=== PATIENT | female | born 1995 | race Caucasian/White ===

== ENCOUNTER 2021-01-31 19:18 | Emergency (ER) | payer OTHER, SELFPAY ==
[2021-01-31 19:49] VITALS: BP 119/87; PULSE 96; RESP 17; TEMP 37.1; O2SAT 98; BMI 40.5
--- NOTE | 2021-01-31 19:57 | HMH.EDUTC ---
[facility] [place] Disposition Clinical Impression: Upper respiratory infection, viral, COVID-19 virus test result unknown Disposition: Home, Self-Care Condition on Discharge: Good Instructions: Preventing the Spread of Coronavirus Discharge Instructions, DI for COVID-19 (Suspected or Confirmed ), DI for Viral Upper Respiratory Infection -- Adult Additional Instructions: No sign of a bacterial infection. Likely viral. Viruses can take 7-14 days to run their course. Nasal saline and bulb syringe or nose Rashida to remove nasal drainage to help with nasal congestion. Hard to eat, drink, sleep with nasal congestion so important to keep this cleaned out. Monitor temp. Tylenol or Motrin as needed for pain or fever Encourage fluids, water, Gatorade, Powerade, Pedialyte if /toddler/child Warm salt water gargles Warm fluids Sore throat lozenges Sleep elevated Humidifier/vaporizer Your covid swab was sent to lab call in am for results-self isolate until test results are known to be neg Follow-up immediately for new or worsening symptoms or no noticeable improvement over the next 48-72 hours. Referrals: PCP,No [Primary Care Provider] - Time of Disposition: 20:01 Medical Decision Making - Hansel Inquiry Pt receiving controlled substance: No Vital Signs: 01/31/21 19:49 Temperature 98.8 F Temperature Source Oral Pulse Rate [Right] 96 H Respiratory Rate 17 Blood Pressure [Right Arm] 119/87 Blood Pressure Mean [Right Arm] 97 Blood Pressure Source [Right Arm] Automatic Cuff Blood Pressure Position [Right Arm] Sitting 02 Sat by Pulse Oximetry 98 Orders (Tests/Meds): ORDERS Category Date Time Status Covid-19 Nasal PCR ([facility]) Routine Lab 01/31/21 19:40 Received [facility] [place] HPI - General Chief complaint: Urgent Treatment Center Stated complaint: sore throat, Headache, vomiting Time Seen by Provider: 01/31/21 19:57 Mode of Arrival: Ambulatory Source of Information: Patient Limitations: No Limitations Description of Symptoms (Recalled from Triage Doc. by RN): pt is having a sore throat, body aches, SELLERS, cough, N/V and soa. pt is 18 weeks . HEENT Symptoms (Recalled from RN notes): Yes (sore throat and SELLERS) Resp Symptoms (Recalled from RN notes): Yes (cough and soa) Skin Symptoms (Recalled from RN notes): No MS Symptoms (Recalled from RN notes): No Functional Status (Recalled from RN notes): na - History of Present Illness Provider Complaint: 25 yr old female presents for a sore throat, body aches, SELLERS, watery eyes, cough, N/V and soa. pt is 18 weeks . - Related Data Allergies Allergy/AdvReac Type Severity Reaction Status Date / Time desvenlafaxine [From Pristiq] Allergy Verified 01/31/21 19:56 - Worker's Comp Is this a Worker's Comp case?: No [facility] History - Hepatitis A Screen Drug use history?: No High risk sexual behaviors?: No History of sexually transmitted infection?: No Currently employed?: No Childcare worker?: No Do you have indoor plumbing?: Yes Do you have electricity?: Yes Attestation statement:: This patient has been screened for Hepatitis A risk factors. I have reviewed the patient's past medical history: Yes ROS Obtained: Yes Systems reviewed as appropriate & no additional complaints - Constitutional Constitutional: Reports system reviewed and no additional complaints, except as docu, Reports body ache, Reports chills, Reports fever(s) - Eyes Eyes: Reports system reviewed and no additional complaints, except as docu, Denies dry eyes - ENT Ears, Nose, Mouth, and Throat: Reports system reviewed and no additional complaints, except as docu, Reports headache(s), Reports nasal congestion, Reports sore throat - Cardiovascular Cardiovascular: Reports system reviewed and no additional complaints, except as docu, Denies chest pain - Respiratory Respiratory: Reports system reviewed and no additional complaints, except as docu, Denies change in phlegm color, Reports cough - Gastr
[2021-01-31 20:01] LABS: UTC Influenza A Antigen Negative (Negative); UTC Strep Screen (Rapid) Negative (Negative)
[2021-01-31 20:02] LABS: UTC Influenza B Antigen Negative (Negative)
[2021-01-31 20:22] VITALS: BP 119/87; PULSE 96; RESP 17; TEMP 37.1
--- NOTE | 2021-02-01 15:22 | PC.NURSE ---
PT NOTIFIED OF POSITIVE COVID RESULT
== END 2021-01-31 20:22 | disposition home or self-care (01) ==
PROVIDERS: Emergency Provider Nurse Practitioner Family
DX: U07.1 COVID-19 (principal); Z3A.18 18 weeks gestation of pregnancy
CPT/HCPCS: 87804; 87880; 99202; G0463; U0003

== ENCOUNTER 2021-02-14 18:27 | Emergency (ER) | payer OTHER, SELFPAY ==
[2021-02-14 18:30] VITALS: BP 128/80; PULSE 96; RESP 18; TEMP 37; O2SAT 97; BMI 39.1
[2021-02-14 18:47] LABS: UTC Strep Screen (Rapid) Negative (Negative)
--- NOTE | 2021-02-14 19:03 | HMH.EDUTC ---
[facility] [place] Clinical Impression: Upper respiratory infection, viral Disposition: Home, Self-Care Condition on Discharge: Good Instructions: Preventing the Spread of Coronavirus Discharge Instructions Additional Instructions: follow up with health dept Referrals: PCP,No [Primary Care Provider] - Time of Disposition: 19:06 Medical Decision Making - Hansel Inquiry Pt receiving controlled substance: No Vital Signs: 02/14/21 18:30 Temperature 98.6 F Temperature Source Oral Pulse Rate [Right Brachial] 96 H Respiratory Rate 18 Blood Pressure [Right Arm] 128/80 Blood Pressure Mean [Right Arm] 96 Blood Pressure Source [Right Arm] Automatic Cuff Blood Pressure Position [Right Arm] Sitting 02 Sat by Pulse Oximetry 97 Oxygen Delivery Method Room Air - Lab Data Lab Results 02/14/21 18:39: Strep Scn Rapid Clinic Negative Orders (Tests/Meds): ORDERS Category Date Time Status Strep Screen Confirmation Stat Micro 02/14/21 18:39 Received [facility] [place] HPI - General Chief complaint: Urgent Treatment Center Stated complaint: sore throat, Time Seen by Provider: 02/14/21 19:03 Mode of Arrival: Ambulatory Source of Information: Patient Limitations: No Limitations Description of Symptoms (Recalled from Triage Doc. by RN): PATIENT C/O SORE THROAT. SHE STATES SHE TESTED POSITIVE FOR COVID 14 DAYS AGO AND HEALTH DEPARTMENT WANTS HER TESTED FOR STREP HEENT Symptoms (Recalled from RN notes): Yes Resp Symptoms (Recalled from RN notes): No Skin Symptoms (Recalled from RN notes): No MS Symptoms (Recalled from RN notes): No Functional Status (Recalled from RN notes): WNL - History of Present Illness Provider Complaint: 25 yr old female presents for sore throat. pt states this is her day 14 of covid and she was told by the health dept to be checked for strep so she can be released to return back to work. - Related Data Allergies Allergy/AdvReac Type Severity Reaction Status Date / Time desvenlafaxine [From Pristiq] Allergy Verified 01/31/21 19:56 - Worker's Comp Is this a Worker's Comp case?: No [facility] History - Hepatitis A Screen Drug use history?: No High risk sexual behaviors?: No History of sexually transmitted infection?: No Currently employed?: No Childcare worker?: No Do you have indoor plumbing?: Yes Do you have electricity?: Yes Attestation statement:: This patient has been screened for Hepatitis A risk factors. I have reviewed the patient's past medical history: Yes Medical History: Reports:: Diabetes Mellitus Type 2 Laterality Cases: Bilateral: Myringotomy (Ear Tubes) - Social History Alcohol Intake: never Occupational Status: other ROS Obtained: Yes Systems reviewed as appropriate & no additional complaints - Constitutional Constitutional: Reports system reviewed and no additional complaints, except as docu, Denies fever(s) - Eyes Eyes: Reports system reviewed and no additional complaints, except as docu, Denies blurry vision - ENT Ears, Nose, Mouth, and Throat: Reports system reviewed and no additional complaints, except as docu, Denies headache(s), Denies neck mass, Reports sore throat - Cardiovascular Cardiovascular: Reports system reviewed and no additional complaints, except as docu, Denies chest pain - Respiratory Respiratory: Reports system reviewed and no additional complaints, except as docu, Denies change in phlegm color - Gastrointestinal Gastrointestingal: Reports: system reviewed and no additional complaints, except as docu. Denies: pain with swallowing - Genitourinary Female Genitourinary: Reports system reviewed and no additional complaints, except as docu - Musculoskeletal Musculoskeletal: Reports system reviewed and no additional complaints, except as docu, Denies joint pain - Integumentary/Breasts Skin/Breast: Reports system reviewed and no additional complaints, except as docu, Denies rash - Neurologic Neurologic: Reports system reviewed and
[2021-02-14 19:06] VITALS: BP 128/80; PULSE 96; RESP 18; TEMP 37; O2SAT 97
== END 2021-02-14 19:08 | disposition home or self-care (01) ==
PROVIDERS: Emergency Provider Nurse Practitioner Family
DX: J06.9 Acute upper respiratory infection, unspecified (principal); Z86.16 Personal history of COVID-19; E11.9 Type 2 diabetes mellitus without complications
CPT/HCPCS: 87880; 99202; G0463

== ENCOUNTER 2021-09-13 17:35 | Emergency (ER) | payer OTHER, SELFPAY ==
[2021-09-13 18:15] VITALS: BP 138/81; PULSE 102; RESP 22; TEMP 36.8; O2SAT 98; BMI 41.6
--- NOTE | 2021-09-13 18:53 | HMH.EDUTC ---
[facility] [place] Disposition Clinical Impression: Sinusitis Qualifiers: Sinusitis location: unspecified location Chronicity: unspecified Qualified Code(s): J32.9 - Chronic sinusitis, unspecified Disposition: Home, Self-Care Condition on Discharge: Good Instructions: Sinusitis, DI for Sinusitis, DI for COVID-19 (Suspected or Confirmed ), Preventing the Spread of Coronavirus Discharge Instructions Additional Instructions: *Monitor Temp, Over the counter Motrin or Tylenol as directed/as needed Tylenol every 4 hours and Motrin every 6 hours (as long as your family doctor has told you that you can take it) for fever or pain. and straight to ER if unable to lower temp less than 101.0 after medication given *Warm salt water gargles may help to soothe the throat *Throat Lozenges *Warm fluids like tea with honey may help to soothe the throat *Sleep elevated *Humidifier/Vaporizer Follow up IMMEDIATELY for new or worsening symptoms or no Noticeable improvement over the next 48-72 hours. 911 for difficulty breathing or swallowing You were tested for today for COVID19 your test result should be back in the next 24-48 hours, you may check your test results on the [facility] Portal if you have trouble logging on you may call You was given a handout with instructions for Self Quarantine and Self isolation for while you wait on test results and what to do if they are positive If you are positive the Health Dept will be contacting you also Make sure to take your Vitamins Vit. C Vit D and Zinc if you can take them Prescriptions: Amoxicillin/Potassium Clav [Augmentin 875-125 Tablet] 1 tab PO Q12H 7 Days #14 tab Transmission Status: Pending to [facility] #[id number] Fluticasone Propionate [Flonase 50mcg nasal spray 16gm] 1 spr NS DAILY #1 each Transmission Status: Pending to [facility] #[id number] Referrals: Provider,Referral, MD [Primary Care Provider] - As needed Forms: Work/School Release Time of Disposition: 19:03 Medical Decision Making - Hansel Inquiry Pt receiving controlled substance: No Hansel was queried for this patient: No Vital Signs: 09/13/21 18:15 Temperature 98.3 F Temperature Source Oral Pulse Rate [Right Brachial] 102 H Respiratory Rate 22 Blood Pressure [Right Arm] 138/81 Blood Pressure Mean [Right Arm] 100 Blood Pressure Source [Right Arm] Automatic Cuff Blood Pressure Position [Right Arm] Sitting 02 Sat by Pulse Oximetry 98 Oxygen Delivery Method Room Air Orders (Tests/Meds): ORDERS Category Date Time Status Covid-19 Nasal PCR ([facility]) Routine Lab 09/13/21 18:26 Received [facility] [place] HPI - General Stated complaint: covid test,sore hroat,cough,SELLERS weak Time Seen by Provider: 09/13/21 18:53 Mode of Arrival: Ambulatory Source of Information: Patient Limitations: No Limitations Description of Symptoms (Recalled from Triage Doc. by RN): PATIENT C/O COUGH, CONGESTION AND LOSS OF TASTE/SMELL SINCE TUESDAY. RECENTLY EXPOSED TO COVID HEENT Symptoms (Recalled from RN notes): Yes Resp Symptoms (Recalled from RN notes): Yes Skin Symptoms (Recalled from RN notes): No MS Symptoms (Recalled from RN notes): No Functional Status (Recalled from RN notes): WNL - History of Present Illness Provider Complaint: Patient states that she is having sinus pressure and pain and cough States that she recently loss her sense of taste and smell State that also she was recently around someone that tested positive for COVID and due to loss of smell was unsure if it was her sinus infection or COVID so she wanted to get tested - Related Data Home Medications Medication Instructions Recorded Confirmed Insulin Glargine,Hum.rec.anlog 40 units SQ DAILY 09/13/21 09/13/21 [Lantus Insulin 100units/mL 10mL vial] Metformin HCl [Metformin 1000mg 1,000 mg PO BID 09/13/21 09/13/21 Tablets] Previous Rx's Medication Instructions Recorded Amoxicillin/Potassium Clav 1 tab PO Q12H 7 Days #14 tab 09/13/21 [Augmentin
[2021-09-13 19:16] VITALS: BP 138/81; PULSE 102; RESP 22; TEMP 36.8; O2SAT 98
== END 2021-09-13 19:22 | disposition home or self-care (01) ==
PROVIDERS: Emergency Provider Nurse Practitioner
DX: J32.9 Chronic sinusitis, unspecified (principal); E11.9 Type 2 diabetes mellitus without complications; Z20.822 Contact with and (suspected) exposure to COVID-19
CPT/HCPCS: 99202; C9803; G0463; U0003; U0005

== ENCOUNTER 2022-02-15 20:38 | Emergency (ER) | payer OTHER, SELFPAY ==
[2022-02-15 20:39] VITALS: BP 140/93; PULSE 83; RESP 18; TEMP 36.8; O2SAT 96; BMI 42.0
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
[2022-02-15 21:12] LABS: Microscopic, Urine URINE MICROSCOPIC (MICROSCOPIC)
[2022-02-15 21:14] LABS: Basophils # 0.4 K/mm3 (0-0.2); Basophils % 2.2 % (0.1-2.0); Eosinophils # 0.3 K/mm3 (0.0-0.4); Eosinophils % 1.9 % (0.1-12.0); Hematocrit 41.8 % (37.0-47.0); Hemoglobin 13.7 g/dL (12.2-16.2); Lymphocytes # 3.4 K/mm3 (0.7-4.5); Lymphocytes % 21.6 % (10-50); Mean Corpuscular HGB Conc 32.9 g/dL (31.8-35.4); Mean Corpuscular Hemoglobin 25.5 pg (27.0-31.2); Mean Corpuscular Volume 77.6 fl (81-99); Mean Platelet Volume 7.3 fl (7.4-10.4); Monocytes # 0.9 K/mm3 (0.1-1.0); Monocytes % 5.4 % (1.7-9.3); Neutrophils # 10.9 K/mm3 (1.8-7.8); Neutrophils % 68.9 % (37.0-80.0); Platelet Count 348 K/mm3 (142-424); Red Blood Count 5.39 M/mm3 (4.20-5.40); Red Cell Distribution Width 15.9 % (11.5-17.5); White Blood Count 15.8 K/mm3 (4.8-10.8)
[2022-02-15 21:14] LABS: Appearance,Urine SL CLOUDY (Clear); Bilirubin,Urine Negative (Negative); Blood, Urine 3+ (Negative); Color,Urine DK YELLOW (Yellow); Glucose,Urine (UA) Negative (Negative); Ketones,Urine Negative (Negative); Leukocyte Esterase,Urine Negative (Negative); Nitrate,Urine Negative (Negative); PH,Urine 6.5 (5.0-8.5); Protein,Urine 1+ (Negative); Specific Gravity, Urine 1.025 (1.005-1.030); Urobilinogen,Urine 0.2 EU/dl (0.2)
[2022-02-15 21:15] VITALS: BP 137/87; PULSE 92; O2SAT 99
[2022-02-15 21:18] LABS: MANUAL DIFFERENTIAL MANUAL DIFFERENTIAL (MANUAL DIFF)
[2022-02-15 21:25] LABS: Alanine Aminotransferase 27 U/L (12-78); Albumin Level 4.5 g/dl (3.5-5.0); Albumin/Globulin Ratio 1.4 (1.1-1.8); Alkaline Phosphatase 76 U/L (38-126); Anion Gap 10.2 mEq/L (5-15); Aspartate Amino Transferase 26 U/L (14-36); Bilirubin,Total 0.5 mg/dl (0.2-1.3); Blood Urea Nitrogen 7 mg/dl (7-17); Calcium 8.8 mg/dl (8.4-10.2); Carbon Dioxide 25 mmol/L (22.0-30.0); Chloride 107 mmol/L (98-107); Creatinine Clearance Estimated 86 mL/min (50-200); Estimated Glomerular Filt Rate 88 ml/min (>60); GFR (African American) 107 ML/MIN (>60); Globulin 3.2 g/dL (1.3-3.2); Glucose 93 mg/dl (74-100); HCG Qualitative, Serum Negative (Negative); Potassium 3.2 mmoL/L (3.5-5.1); Sodium 139 mmol/L (136-145); Total Protein,Serum 7.7 g/dl (6.3-8.2)
[2022-02-15 21:41] LABS: Eosinophils % 1 % (0-3); Lymphocytes % 25 % (10-50); Monocytes % 7 % (2-9); Neutrophils % 67 % (42-76); Platelet Estimate Normal; Total Cells Counted 100
[2022-02-15 21:43] LABS: Bacteria,Urine 1+ /lpf; RBC,Urine 20-50 #/hpf (0-3)
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
[2022-02-15 22:34] VITALS: BP 136/94; PULSE 71; O2SAT 98
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
--- NOTE | 2022-02-15 23:39 | PC.NURSE ---
PATIENT TO RADIOLOGY
--- NOTE | 2022-02-15 23:41 | PC.NURSE ---
PATIENT BACK IN ROOM
[2022-02-16 00:21] VITALS: BP 137/75; PULSE 72; RESP 18; TEMP 36.6; O2SAT 98
== END 2022-02-16 00:22 | disposition home or self-care (01) ==
PROVIDERS: Emergency Provider Emergency Medicine
DX: S39.91XA Unspecified injury of abdomen, initial encounter (principal); R31.9 Hematuria, unspecified; M79.602 Pain in left arm; M79.652 Pain in left thigh; R10.30 Lower abdominal pain, unspecified; E11.9 Type 2 diabetes mellitus without complications; Z79.4 Long term (current) use of insulin; Z79.51 Long term (current) use of inhaled steroids; Z79.84 Long term (current) use of oral hypoglycemic drugs; Z79.899 Other long term (current) drug therapy; Z88.8 Allergy status to other drugs, medicaments and biological substances; V89.2XXA Person injured in unspecified motor-vehicle accident, traffic, initial encounter
CPT/HCPCS: 70450; 71045; 71275; 72125; 72170; 74177; 80053; 81001; 84703; 85007; 85025; 99285; Q9967